=== PATIENT | female | born 1960 | race Native Hawaiian/Other Pacific Islander ===

== ENCOUNTER 2017-08-19 16:14 | Emergency (ER) | payer OTHER ==
[~2017-08-19] VITALS: Ht 165.1 cm; Wt 74.8 kg
[2017-08-19 17:03] LABS: PLATELET COUNT 260 K/uL (152-353)
[2017-08-19 17:05] LABS: POTASSIUM 3.7 mmol/L (3.6-5.2)
[2017-08-19 19:24] VITALS: BP 111/47; TEMP 98.9
== END 2017-08-19 19:24 | disposition home or self-care (01) ==
LOC: ED 16:14
PROVIDERS: Emergency Medicine
DX: N39.0 Urinary tract infection, site not specified (principal); K52.9 Noninfective gastroenteritis and colitis, unspecified; E86.9 Volume depletion, unspecified
CPT/HCPCS: 36415; 74022; 80053; 81000; 82150; 83690; 85027; 96365; 96374; 96375; 99284; J0696; J2550

== ENCOUNTER 2018-03-15 11:22 | Outpatient (CLI) | payer OTHER | END 2018-03-15 21:57 | disposition home or self-care (01) | LOC: RAD 11:22 | DX: M54.89 Other dorsalgia (principal); M54.2 Cervicalgia ==

== ENCOUNTER 2018-08-25 19:01 | Emergency (ER) | payer OTHER ==
[~2018-08-25] VITALS: Ht 165.1 cm; Wt 74.8 kg
[2018-08-25 19:01] VITALS: TEMP 98
[2018-08-25] MEDS ORDERED: METOPROLOL25 M1 PO (19:34)
[2018-08-25] MEDS ORDERED: DULO60CA2 PO (19:34)
[2018-08-25 20:58] VITALS: BP 126/70
== END 2018-08-25 21:08 | disposition home or self-care (01) ==
LOC: ED 19:01
DX: J06.9 Acute upper respiratory infection, unspecified (principal); R06.2 Wheezing
CPT/HCPCS: 94664; 99282

== ENCOUNTER 2018-12-19 11:00 | Outpatient (CLI) | payer OTHER ==
[~2018-12-19 11:00] MED LIST: DULO60CA2 PO; METOPROLOL25 M1 PO
[2018-12-19 11:40] LABS: PLATELET COUNT 289 K/uL (152-353)
[2018-12-19 12:21] LABS: POTASSIUM 4.2 mmol/L (3.6-5.2)
== END 2018-12-19 23:15 | disposition home or self-care (01) ==
LOC: LABW 11:00
PROVIDERS: Physician Assistant
DX: I10 Essential (primary) hypertension (principal); K21.9 Gastro-esophageal reflux disease without esophagitis; Z79.899 Other long term (current) drug therapy; E55.9 Vitamin D deficiency, unspecified
CPT/HCPCS: 36415; 80053; 80061; 82306; 83036; 84439; 84443; 85027

== ENCOUNTER 2019-03-12 11:04 | Outpatient (CLI) | payer OTHER | END 2019-03-12 22:46 | disposition home or self-care (01) | LOC: MRI 11:04 | DX: M54.16 Radiculopathy, lumbar region (principal); M54.5 Low back pain ==

== ENCOUNTER 2020-01-07 10:56 | Emergency (ER) | payer OTHER ==
[~2020-01-07] VITALS: Ht 165.1 cm; Wt 77.1 kg
[2020-01-07 10:59] VITALS: BP 154/93; TEMP 97.5
== END 2020-01-07 12:40 | disposition home or self-care (01) ==
LOC: ED 10:56
DX: J45.909 Unspecified asthma, uncomplicated (principal); F17.210 Nicotine dependence, cigarettes, uncomplicated
CPT/HCPCS: 87502; 87651; 94664; 99283

== ENCOUNTER 2020-02-27 10:12 | Outpatient (CLI) | payer OTHER | END 2020-02-27 21:37 | disposition home or self-care (01) | LOC: CT 10:12 | DX: J98.11 Atelectasis (principal); R06.00 Dyspnea, unspecified | CPT/HCPCS: 36415; 82565; 84520; Q9963 ==

== ENCOUNTER 2020-04-07 10:32 | Outpatient (CLI) | payer OTHER ==
[2020-04-07 11:05] LABS: PLATELET COUNT 280 K/uL (152-353)
[2020-04-07 11:23] LABS: POTASSIUM 4.9 mmol/L (3.6-5.2)
== END 2020-04-07 23:11 | disposition home or self-care (01) ==
LOC: LABW 10:32
PROVIDERS: Internal Medicine
DX: M47.816 Spondylosis without myelopathy or radiculopathy, lumbar region (principal); I10 Essential (primary) hypertension; R53.83 Other fatigue
CPT/HCPCS: 36415; 80053; 80061; 81000; 84439; 84443; 85027

== ENCOUNTER 2020-05-07 11:19 | Outpatient (CLI) | payer OTHER | END 2020-05-07 21:32 | disposition home or self-care (01) | LOC: US 11:19 | DX: R31.9 Hematuria, unspecified (principal) ==

== ENCOUNTER 2020-05-27 13:57 | Outpatient (CLI) | payer OTHER | END 2020-05-27 21:27 | disposition home or self-care (01) | LOC: MRI 13:57 | DX: M54.5 Low back pain (principal) | CPT/HCPCS: 36415; 82565; 84520; A9576 ==

== ENCOUNTER 2020-10-24 17:34 | Emergency (ER) | payer OTHER ==
[~2020-10-24] VITALS: Ht 165.1 cm; Wt 74.8 kg
[2020-10-24 17:44] VITALS: TEMP 98.6
[2020-10-24 18:22] LABS: PLATELET COUNT 282 K/uL (152-353)
[2020-10-24 18:30] LABS: POTASSIUM 4.1 mmol/L (3.6-5.2)
[2020-10-24 20:20] VITALS: BP 129/58
== END 2020-10-24 20:20 | disposition home or self-care (01) ==
LOC: ED 17:34
PROVIDERS: Hospitalist
DX: J06.9 Acute upper respiratory infection, unspecified (principal); J02.9 Acute pharyngitis, unspecified; F17.210 Nicotine dependence, cigarettes, uncomplicated
CPT/HCPCS: 36415; 80048; 85027; 87635; 87651; 96365; 96375; 99284; J0456; J2405; J2930; U0003

== ENCOUNTER 2020-11-21 09:06 | Outpatient (CLI) | payer OTHER | END 2020-11-21 19:34 | disposition home or self-care (01) | LOC: MAMMO 09:06 | PROVIDERS: ATTEND Internal Medicine | DX: Z12.31 Encounter for screening mammogram for malignant neoplasm of breast (principal); Z13.820 Encounter for screening for osteoporosis ==

== ENCOUNTER 2020-12-23 10:47 | Outpatient (CLI) | payer OTHER | END 2020-12-23 19:38 | disposition home or self-care (01) | LOC: RAD 10:47 → LABW 10:47 → RAD 19:38 | PROVIDERS: ATTEND Internal Medicine | DX: J18.9 Pneumonia, unspecified organism (principal); Z11.59 Encounter for screening for other viral diseases | CPT/HCPCS: 87635; G2023; U0003 ==

== ENCOUNTER 2021-01-21 09:33 | Outpatient (CLI) | payer OTHER | END 2021-01-21 21:58 | disposition home or self-care (01) | LOC: INF 09:33 | PROVIDERS: ATTEND Internal Medicine | DX: Z23 Encounter for immunization (principal) | CPT/HCPCS: 96372 ==

== ENCOUNTER 2021-02-12 10:58 | Outpatient (CLI) | payer OTHER | END 2021-02-12 21:13 | disposition home or self-care (01) | LOC: INF 10:58 | PROVIDERS: ATTEND Internal Medicine | DX: Z23 Encounter for immunization (principal) | CPT/HCPCS: 96372 ==

== ENCOUNTER 2021-11-08 11:24 | Emergency (ER) | payer OTHER ==
[~2021-11-08] VITALS: Ht 165.1 cm; Wt 79.4 kg
[2021-11-08 14:03] VITALS: BP 131/65; TEMP 98.8
== END 2021-11-08 14:09 | disposition home or self-care (01) ==
LOC: ED 11:24
DX: J20.9 Acute bronchitis, unspecified (principal); Z20.822 Contact with and (suspected) exposure to COVID-19; F17.210 Nicotine dependence, cigarettes, uncomplicated
CPT/HCPCS: 81000; 87502; 87635; 96372; 99283; J1100; U0003

== ENCOUNTER 2022-04-07 15:09 | Outpatient (CLI) | payer OTHER | END 2022-04-07 18:53 | disposition home or self-care (01) | LOC: CT 15:09 | PROVIDERS: ATTEND Physician Assistant | DX: R10.9 Unspecified abdominal pain (principal); R35.0 Frequency of micturition; M54.89 Other dorsalgia ==

== ENCOUNTER 2022-11-22 10:01 | Outpatient (CLI) | payer OTHER | END 2022-11-22 19:22 | disposition home or self-care (01) | LOC: CT 10:01 | PROVIDERS: ATTEND Physician Assistant | DX: N30.00 Acute cystitis without hematuria (principal); R10.9 Unspecified abdominal pain ==